=== PATIENT | female | born 1980 | race Hispanic/Latino ===

== ENCOUNTER 2018-02-07 09:05 | Observation (INO) | payer OTHER ==
[2018-02-07 09:17] VITALS: BMI 26.9
[2018-02-07 10:20] LABS: BASO % 0.4 % (0.0-2.0); EOS % 0.7 % (0.0-4.0); HEMOGLOBIN 12.2 g/dL (12.0-16.0); LYMPH # 1.4 K/uL (1.0-4.3); LYMPH % 25.1 % (20.0-40.0); MEAN CELL VOLUME 89.9 fl (81.0-99.0); MEAN CORPUSCULAR HEMOGLOBIN 29.9 pg (27.0-31.0); MEAN CORPUSCULAR HGB CONC 33.3 g/dL (33.0-37.0); MEAN PLATELET VOLUME 9.5 fl (7.2-11.7); MONO # 0.4 K/uL (0.0-0.8); MONO % 6.7 % (0.0-10.0); NEUT # 3.6 K/uL (1.8-7.0); NEUT % 67.1 % (50.0-75.0); NRBC % 0.1 % (0.0-0.0); RBC 4.09 Mil/uL (3.80-5.20); RED CELL DISTRIBUTION WIDTH 13.1 % (11.5-14.5); WHITE BLOOD COUNT 5.4 K/uL (4.8-10.8)
[2018-02-07] MEDS ORDERED: Bupivacaine 0.5% Inj(30mL) ONE (12:24)
[2018-02-07] MEDS ORDERED: ceFAZolin 2 GM in Sodium Chloride 0.9% 100 ML IVPB ONE (12:30)
[2018-02-07] MEDS ORDERED: Rocuronium 10 mg/ml (5 ml) ONE (12:44)
[2018-02-07] MEDS ORDERED: Midazolam 2 MG/2 ML VIAL ONE (12:44)
[2018-02-07] MEDS ORDERED: Propofol 10 mg/ml Inj (20 ML) ONE (12:44)
[2018-02-07] MEDS ORDERED: Succinylcholine 200 mg/10 ml Inj IV ONE (12:45)
[2018-02-07] MEDS ORDERED: Lactated Ringer's 1,000 ML IV ONE ×3 (12:50→17:29)
[2018-02-07] MEDS ORDERED: ePHEDrine 50 mg/ml Inj ONE (13:27)
[2018-02-07] MEDS ORDERED: Desflurane Inhalation Anesthetic Liq (240 ml) ONE (14:18)
[2018-02-07] MEDS ORDERED: Neostigmine 1:1000 (1 mg/ml) Inj ONE (14:49)
[2018-02-07] MEDS ORDERED: DiphenhydrAMINE 50 mg/ml Inj IVP PRN (15:23)
[2018-02-07] MEDS ORDERED: Oxycodone/Acetaminophen 5/325 mg Tab PO PRN (15:25)
[2018-02-07] MEDS ORDERED: Sodium Chloride 0.9% 1,000 ML IV SCH (15:30)
[2018-02-07] MEDS ORDERED: Lactated Ringer's 1,000 ML IV SCH (15:30)
[2018-02-07] MEDS: Morphine 4 MG/ML VIAL IVP PRN ×2 (15:39→15:55)
[2018-02-07] MEDS ORDERED: Morphine 4 MG/ML VIAL IVP PRN (15:54)
[2018-02-07] MEDS: ceFAZolin 2 GM in Sodium Chloride 0.9% 100 ML IVPB SCH (21:28)
[2018-02-08] MEDS: ceFAZolin 2 GM in Sodium Chloride 0.9% 100 ML IVPB SCH ×2 (05:21→10:31)
[2018-02-08 07:40] LABS: HEMOGLOBIN 12.8 g/dL (12.0-16.0); MEAN CELL VOLUME 88.3 fl (81.0-99.0); MEAN CORPUSCULAR HEMOGLOBIN 29.5 pg (27.0-31.0); MEAN CORPUSCULAR HGB CONC 33.4 g/dL (33.0-37.0); RBC 4.34 Mil/uL (3.80-5.20); RED CELL DISTRIBUTION WIDTH 13.1 % (11.5-14.5); WHITE BLOOD COUNT 12.3 K/uL (4.8-10.8)
[2018-02-08 07:42] LABS: BLOOD UREA NITROGEN 9 mg/dl (7-17); CALCIUM 8.8 mg/dL (8.4-10.2); GFR AFRICAN-AMERICAN > 60; GFR NON-AFRICAN AMERICAN > 60
[2018-02-08 08:50] VITALS: BP 97/55; PULSE 66; RESP 20; TEMP 98.4; O2SAT 99
--- NOTE | 2018-02-08 11:03 | CP.PCM.PN ---
Subjective - Date & Time of Evaluation Date of Evaluation: 02/08/18 Time of Evaluation: 08:30 - Subjective Subjective: Patient seen and examined at bedside comfortable. Pain well controlled. Able to be OOB to bathroom voiding without difficulty. Durga diet well. No acute events overnight. Objective - Vital Signs/Intake and Output Vital Signs (last 24 hours): Temp Pulse Resp BP Pulse Ox 98.4 F 66 20 97/55 L 99 02/08/18 08:50 02/08/18 08:50 02/08/18 08:50 02/08/18 08:50 02/08/18 08:50 - Medications Medications: Current Medications Lactated Ringer's (Lactated Ringer's) 1,000 mls @ 125 mls/hr IV .Q8H RICHAR Cefazolin Sodium 2 gm/ Sodium (Chloride) 100 mls @ 100 mls/hr IVPB Q8H RICHAR PRN Reason: Protocol Stop: 02/08/18 13:29 Last Admin: 02/08/18 10:31 Dose: 100 mls/hr Sodium Chloride (Sodium Chloride 0.9%) 1,000 mls @ 100 mls/hr IV .Q10H RICHAR Morphine Sulfate (Morphine) 4 mg IVP Q4 PRN PRN Reason: Pain, severe (8-10) Ondansetron HCl (Zofran Inj) 4 mg IVP Q6 PRN PRN Reason: Nausea/Vomiting Oxycodone/Acetaminophen (Percocet 5/325 Mg Tab) 1 tab PO Q4 PRN PRN Reason: Pain, moderate (4-7) Stop: 02/10/18 15:26 - Labs Labs: 02/08/18 05:30 02/08/18 05:30 - GI/Abdominal Exam Additional comments: Portal dressings c/d/i. minimal tenderness about portal sites. soft, no distension Assessment and Plan (1) Endometriosis Assessment & Plan: POD#1 from robotic endometriosis tissue removal doing well -encourage OOB -clear to discharge home -patients case and plan was d/w Dr. Case in agreement Status: Acute
--- NOTE | 2018-02-08 15:45 | OP ---
PROCEDURE DATE: 02/07/2018 PREOPERATIVE DIAGNOSES: Pelvic pain, dysmenorrhea, dyspareunia, rule out endometriosis. POSTOPERATIVE DIAGNOSIS: Pelvic endometriosis, multifocal and deep invasive. PROCEDURE PERFORMED: Cystoscopy with bilateral ureteral catheterization and injection of IC Green dye, diagnostic hysteroscopy, robotic da Deuce laparoscopy, excision of endometriosis, bilateral ureterolysis to be dictated separately by Dr. Cali Cardoso is excision of anterior rectal mass and appendectomy. SURGEON: Lincoln Case MD RESIDENCE HALL DIRECTOR: Cali Cardoso MD from General Surgery. COMPLICATIONS: None. ESTIMATED BLOOD LOSS: Minimal. SAMPLES: Multiple samples from the right, left pelvic sidewall cul-de-sac and appendix sent to Pathology. INDICATION FOR PROCEDURE: The patient is a 37-year-old female with a history of dysmenorrhea and dyspareunia. She was examined and positive exam revealing acute focal tenderness in the posterior cul-de-sac. She was counseled with regards of the risks and benefits of the procedure and the likelihood that the surgery would ameliorate her symptoms. She signed the consent and was taken to the OR. DESCRIPTION OF PROCEDURE: After adequate anesthesia was obtained, the patient was taken to the OR and placed in dorsal lithotomy position. She was prepped and draped with extreme attention to padding every area prone to potential pressure and her hips were neither hyperextended or hyperflexed and kept in the very safe position throughout the procedure. At this point, a time-out was taken according to the hospital standards and the procedure was started. The first part in the vaginal area where a cystoscope was inserted into the bladder, under direct visualization, both ureters were seen and appeared to be in normal anatomical position. The bladder was clear of lesions or masses and at this point, a 5-Monegasque open-ended catheter was inserted into the left ureter all the way to the distal ureter and 5 mL of IC-Green were injected. Similarly, after retracting the catheter, the right ureter was also cannulated all the way to the distal ureter and 5 mL of IC-Green were injected. A 5-Monegasque Landers was then placed into the bladder. Attention now was in the vaginal area where a speculum was placed in the vagina. The anterior lip of the cervix was grasped. The cervix was gently dilated and a hysteroscope was placed into the uterus revealing a normal cavity with no evidence of polyps or fibroids. At this point, attention was on the abdominal area where an incision was made on the umbilicus, this was carried down through the fascia with open laparoscopy technique. The peritoneum was entered in a blunt fashion, and a robotic cannula was inserted. Under direct visualization, additional ports were inserted, right upper quadrant, left mid quadrant, and left upper quadrant. The da Deuce Xi robot was undocked. The findings were the following; there were multiple deep invasive endometriosis implants on the left pelvic sidewall overlying the ureter in the left uterosacral area in the posterior cervical area in the cul-de-sac and on the right uterosacral area. Additionally, the upper abdomen was examined and appeared to be normal and the bladder reflection was also examined and appeared to be normal. At this point, attention was first on the left hand side where after identifying the ureter, the peritoneum was entered and a dissection of peritoneum was started dissecting the ureter, which was visualized utilizing fluorescent technology, progressively lateralizing and medializing the peritoneum. One of the peritoneal lesion overlying the ureter was quite adherent and appeared to be invasive endometriosis. The area was dissected and removed. The dissection was thus continued on the left uterosacral area dissecting posterior cervical peritoneum as well as left uterosacral area. Attention was then off to the right hand side of the pelvis where again the peritoneum was entered and the peritoneum was then medialized and the ureter lateralized and progressively dissected off, dissecting parietal peritoneum continuing endometriosis. Additionally, similarly in the right uterosacral area, progressive dissection was performed incorporating areas of potential endometriosis. The posterior cervical area was then progressively dissected off. There appeared to be two lesions of the endometriosis affecting the anterior rectum, which were excised by Dr. Cardoso from General Surgery. He will dictate this part separately. Additionally, the appendix was noted to be lying in the pelvis when the surgery was initiated and had some serosal abnormalities. It was then decided to excise it as it had been priorly discussed with the patient and this was performed without difficulty from Dr. Cardoso from General Surgery. At this point, it was checked for hemostasis and appeared to be excellent. The da Deuce robot was then undocked. The instruments were then removed and the abdomen desufflated and the incision was closed with 0 PDS for the fascia and 4-0 Monocryl for the skin. At the end of the procedure, all tapes and instruments counts were correct. The patient tolerated the procedure well and was taken to recovery room in excellent condition. Lincoln Case MD [facility]
--- NOTE | 2018-02-20 16:52 | PCM.OP ---
Operative Report - Operative Report Date of Surgery/Procedure: 02/07/18 Time of Surgery/Procedure: 08:00 Surgeon: Dr. Cali Cardoso Deckhand Engineer: Dr. Lincoln Case Anesthesia/Sedation: general/Dr. Hollis Pre-Operative Diagnosis: abdominal pain and endometriosis Post-Operative Diagnosis: endometriosis involveing the rectum and appendix Indication for Surgery: as above Operative Findings: as above Procedure/Operation Description: 1-Excision perirectal endometriosis. 2- Appendectomy. Brief History: this 37 year ld woman was brought to the operating room by Dr. Case when he noted intestineal involvement with endometriosis. Intraoperative geneeral surgery consultation was requested. Description of the Procedudre: Dr. Evie snell already intiated the robotic procedure (separate dictation Dr. Case). After taking control of the robotic console the rectal lesion was idnetified and with blunt and sharp disection with the aid of electrocautery the lesion was incised circumferentially. It was excised en-bloc and sent to pathology separately. The appendix was retracted anteriorly and the mesnetery was dessicated with electrocautery with attention to the appendiceal artery. With the appendix dissected to the base three 3-0 PDS endoloops was placed and the appendix was trasected, removed and sent separately to pathology. Hemostasis was deemed adeqaute. The operation was then turned over to Dr. Case (separate dictation). Estimated Blood Loss: 20 cc Complications: none Specimen: 1-perirectal endometriosis. 2-appendix Discharge & Condition: stable
== END 2018-02-08 12:38 | disposition home or self-care (01) ==
LOC: H.OPSURG 09:05 → INTOOBSV 15:25 → H.MEDSURG1 15:25
PROVIDERS: ADMIT Obstetrics & Gynecology Reproductive Endocrinology; ATTEND Obstetrics & Gynecology Reproductive Endocrinology
DX: N80.3 Endometriosis of pelvic peritoneum (principal); R10.2 Pelvic and perineal pain; N94.6 Dysmenorrhea, unspecified; N94.10 Unspecified dyspareunia
CPT/HCPCS: 36415; 44970; 52000; 57500; 58662; 80048; 85025; 85027; 86850; 86900; 88305; C1729; G0378; J0330; J0690; J1885; J2001; J2250; J2270; J2704; J2710; J3010; J7030; J7040; J7120; S2900